=== PATIENT | male | born 1950 | race Caucasian/White ===

== ENCOUNTER 2018-11-13 13:59 | Emergency (ER) | payer OTHER, SELFPAY ==
[2018-11-13 14:01] VITALS: BP 159/95; PULSE 101; RESP 26; TEMP 36.6; O2SAT 95; BMI 16.0
--- NOTE | 2018-11-13 14:05 | XR_ITS ---
XR chest AP HISTORY: Posttraumatic pain ITS.REASON: fall ORDERING PHYSICIAN: Ashwin Diaz MD PATIENT AGE: 68 years COMPARISON: 1125 and 14 FINDINGS: Normal heart size.. COPD. Increased density is present in both mid and lower lung zones may be due to combination of airspace disease and pleural effusion. Consider chest CT for further evaluation. There is more focal increased density in the right midlung laterally which could be due to loculated effusion or mass. No acute bony anomalies are evident. IMPRESSION: COPD with bilateral airspace disease/pneumonia with right mid lung mass versus loculated effusion.
--- NOTE | 2018-11-13 14:05 | XR_ITS ---
XR hip LT 2-3V w/pelvis HISTORY: Posttraumatic pain ITS.REASON: fall ORDERING PHYSICIAN: Ashwin Diaz MD PATIENT AGE: 68 years COMPARISON: None FINDINGS: There is comminuted and displaced left superior pubic ramus fracture. The medial fracture fragment is displaced inferiorly x 2 cm. Comminuted inferior pubic ramus fracture on the left also noted. No obvious acetabular fracture. CT may confirm if clinically desired. No evidence of hip dislocation. IMPRESSION: Comminuted left superior and inferior pubic ramus fracture with displacement of the superior pubic ramus fracture
[2018-11-13 14:30] LABS: Basophils # 0.1 K/mm3 (0-0.2); Basophils % 0.4 % (0.1-2.0); Eosinophils # 0.2 K/mm3 (0.0-0.4); Eosinophils % 1.5 % (0.1-12.0); Hematocrit 33.9 % (42.0-52.0); Hemoglobin 10.7 g/dL (14.1-18.0); Lymphocytes # 0.5 K/mm3 (0.7-4.5); Lymphocytes % 4.1 % (10-50); Mean Corpuscular HGB Conc 31.7 g/dL (31.8-35.4); Mean Corpuscular Hemoglobin 30.3 pg (27.0-31.2); Mean Corpuscular Volume 95.5 fl (80-94); Mean Platelet Volume 7.8 fl (7.4-10.4); Monocytes # 0.5 K/mm3 (0.1-1.0); Monocytes % 4.6 % (1.7-9.3); Neutrophils # 9.7 K/mm3 (1.8-7.8); Neutrophils % 89.4 % (37.0-80.0); Platelet Count 523 K/mm3 (142-424); Red Blood Count 3.55 M/mm3 (4.60-6.20); Red Cell Distribution Width 13.7 % (11.5-17.5); White Blood Count 10.9 K/mm3 (4.8-10.8)
[2018-11-13 14:38] LABS: MANUAL DIFFERENTIAL MANUAL DIFFERENTIAL (MANUAL DIFF)
[2018-11-13 14:41] LABS: Alanine Aminotransferase 32 U/L (12-78); Albumin Level 1.9 gm/dL (3.4-5.0); Albumin/Globulin Ratio 0.3 (1.1-1.8); Alkaline Phosphatase 111 U/L (46-116); Anion Gap 12.9 mEq/L (5-15); Aspartate Amino Transferase 28 U/L (15-37); Bilirubin,Total 0.3 mg/dL (0.2-1.0); Blood Urea Nitrogen 22 mg/dL (7-18); Calcium 9.3 mg/dL (8.5-10.1); Carbon Dioxide 30 mmol/L (21.0-32.0); Chloride 97 mmol/L (98-107); Creatinine Clearance Estimated 56 mL/min (50-200); Creatinine,Serum 0.71 mg/dL (0.70-1.30); Estimated Glomerular Filt Rate 110 ml/min (>60); GFR (African American) 133 ML/MIN (>60); Globulin 5.9 gm/dl (1.3-3.2); Glucose 112 mg/dL (74-106); Potassium 4.9 mmoL/L (3.5-5.1); Sodium 135 mmol/L (136-145); Total Protein,Serum 7.8 gm/dL (6.4-8.2)
[2018-11-13 14:57] LABS: Eosinophils % 2 % (0-3); Lymphocytes % 8 % (10-50); Monocytes % 2 % (2-9); Neutrophils % 88 % (42-76); Platelet Estimate Moderate Increase; Total Cells Counted 100
[2018-11-13 14:58] LABS: RBC Morphology Normal
[2018-11-13 14:59] VITALS: BP 109/61; PULSE 110; O2SAT 97
--- NOTE | 2018-11-13 15:07 | [facility].EDFALL ---
ED Disposition Clinical Impression: Bilateral pneumonia, Fracture of ramus of left pubis Disposition: Xfer Short-Term Hosp Condition on Discharge: Serious Referrals: Ashwin Pride MD [Primary Care Provider] - Time of Disposition: 16:01 - Critical Care Critical Care Time: No Attestation: On 11/13/18, the high probability of a clinically significant, sudden or life threatening deterioration of the following system(s) required my full and direct attention, intervention and personal management. The time I documented below is in addition to time spent performing reported procedures but includes the following listed in this critical care notation. Medical Decision Making - Medical Records Medical records reviewed: Yes: I reviewed the patient's medical records. - Morteza Inquiry Pt receiving controlled substance: No Morteza was queried for this patient: No Vital Signs: 11/13/18 14:01 11/13/18 14:59 11/13/18 15:20 Temperature 97.9 F Temperature Source Temporal Artery Scan Pulse Rate [Right Brachial] 101 H 110 H 105 H Respiratory Rate 26 H Blood Pressure [Right Arm] 159/95 H 109/61 L 149/61 H Blood Pressure Mean [Right Arm] 116 77 90 Blood Pressure Source [Right Arm] Automatic Cuff Blood Pressure Position [Right Arm] Sitting 02 Sat by Pulse Oximetry 95 97 98 Oxygen Flow Rate (LPM) 3 - Lab Data Lab results reviewed: Yes: I reviewed the patient's lab results. Lab Results 11/13/18 14:10: WBC 10.9 H, RBC 3.55 L, Hgb 10.7 L, Hct 33.9 L, MCV 95.5 H, MCH 30.3, MCHC 31.7 L, RDW 13.7, Plt Count 523 H, MPV 7.8, Neut % (Auto) 89.4 H, Lymph % (Auto) 4.1 L, [place] % (Auto) 4.6, Eos % (Auto) 1.5, Baso % (Auto) 0.4, Neut # (Auto) 9.7 H, Lymph # (Auto) 0.5 L, [place] # (Auto) 0.5, Eos # (Auto) 0.2, Baso # (Auto) 0.1, Total Counted 100, Neutrophils % (Manual) 88 H, Lymphocytes % (Manual) 8 L, Monocytes % (Manual) 2, Eosinophils % (Manual) 2, Platelet Estimate Moderate increase, RBC Morphology Normal 11/13/18 14:10: Sodium 135 L, Potassium 4.9, Chloride 97 L, Carbon Dioxide 30, Anion Gap 12.9, BUN 22 H, Creatinine 0.71, Estimated Creat Clear 56, Estimated GFR 110, Est GFR ( Amer) 133, Glucose 112 H, Calcium 9.3, Total Bilirubin 0.3, AST 28, ALT 32, Alkaline Phosphatase 111, Total Protein 7.8, Albumin 1.9 L, Globulin 5.9 H, Albumin/Globulin Ratio 0.3 L 11/13/18 14:10: PT 10.3, INR 0.99, APTT 38.3 H Result diagrams: 11/13/18 14:10 11/13/18 14:10 Orders (Tests/Meds): ED MEDICATIONS Generic Name Dose Route Start Last Admin Trade Name Freq PRN Reason Stop Dose Admin Levofloxacin/Dextrose 750 mg in 150 mls @ 100 mls/hr 11/13/18 16:00 Levofloxacin 750mg/150ml Premix IV 11/27/18 15:59 Q24H ELI Protocol Cefepime HCl 2 gm/ Sodium 100 mls @ 200 mls/hr 11/13/18 15:47 Chloride IV 11/13/18 16:16 ONCE ONE Protocol Discontinued Medications Generic Name Dose Route Start Last Admin Trade Name Freq PRN Reason Stop Dose Admin Albuterol/Ipratropium 3 ml 11/13/18 14:32 11/13/18 14:36 Duoneb 3ml Neb IH 11/13/18 14:33 3 ml ONCE ONE Administration Methylprednisolone Sodium Succinate 125 mg 11/13/18 14:32 11/13/18 14:35 Solu-Medrol 125mg/2ml Vial IV 11/13/18 14:33 125 mg ONCE ONE Administration Morphine Sulfate 3 mg 11/13/18 15:19 11/13/18 15:34 Morphine 4mg/Ml Syringe IV 11/13/18 15:20 3 mg ONCE ONE Administration Ondansetron HCl 4 mg 11/13/18 15:20 11/13/18 15:34 Zofran 4mg/2ml Vial IV 11/13/18 15:21 4 mg ONCE ONE Administration - Physician Consults Physician Consulted: [place] jules trauma Reason -: Transfer to another facilty, Orthopedic Eval/Care Comment/Response: accepts Fall HPI - General Chief Complaint: Fall Stated Complaint: fall with left hip pain Time Seen by Provider: 11/13/18 15:55 Mode of Arrival: EMS Source of Information: Patient, Relative, EMS Limitations: Physical Limitations Description of Symptoms (Recalled fr
[2018-11-13 15:20] VITALS: BP 149/61; PULSE 105; O2SAT 98
[2018-11-13 15:33] LABS: INR 0.99 (0.9-1.1); Prothrombin Time 10.3 seconds (9.4-11.8)
[2018-11-13 15:41] LABS: Activated Partial Thrombo Time 38.3 seconds (23.6-34.0)
--- NOTE | 2018-11-13 15:48 | PC.NURSE ---
[facility] CALLED FROM [facility] ON PTT 38.3 DR REGAN AWARE
[2018-11-13 16:00] VITALS: BP 106/54; PULSE 108; O2SAT 94
--- NOTE | 2018-11-13 16:02 | PC.NURSE ---
DR REGAN SPEAKING WITH ABOUT POSSIBLE ADMISSION . DR SMITH HAS ACCEPTED PT TO THE ER , FACE SHEET FAXED
[2018-11-13 17:00] VITALS: BP 101/56; PULSE 102; RESP 24; TEMP 36.7; O2SAT 95
== END 2018-11-13 17:09 | disposition short-term general hospital (02) ==
PROVIDERS: Emergency Provider Emergency Medicine; PCP Emergency Medicine
DX: J18.9 Pneumonia, unspecified organism (principal); S32.592A Other specified fracture of left pubis, initial encounter for closed fracture; W06.XXXA Fall from bed, initial encounter; Y92.122 Bedroom in nursing home as the place of occurrence of the external cause; J44.9 Chronic obstructive pulmonary disease, unspecified; K21.9 Gastro-esophageal reflux disease without esophagitis; F17.210 Nicotine dependence, cigarettes, uncomplicated; Z88.0 Allergy status to penicillin; D68.9 Coagulation defect, unspecified
CPT/HCPCS: 71045; 73502; 80053; 85007; 85025; 85610; 85730; 96365; 96367; 96375; 99283; J1956; J2405